=== PATIENT | female | born 1970 | race Caucasian/White ===

== ENCOUNTER 2019-08-06 13:07 | Emergency (ER) | payer BC, SELFPAY ==
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
[2019-08-06 13:32] VITALS: BP 132/58; PULSE 94; RESP 18; TEMP 37.3; O2SAT 100
[2019-08-06] MEDS: TETANUS,DIPHTHERIA,AC PERTUSSIS ADULT 0.5 ML (ADACEL) IM (14:26)
[2019-08-06] MEDS: ACETAMINOPHEN 500 MG TABLET 1000 MG PO (14:28)
== END 2019-08-06 15:10 | disposition home or self-care (01) ==
PROVIDERS: Emergency Provider Nurse Practitioner Family
DX: S22.42XA Multiple fractures of ribs, left side, initial encounter for closed fracture (principal); S40.012A Contusion of left shoulder, initial encounter; S80.211A Abrasion, right knee, initial encounter; V18.0XXA Pedal cycle driver injured in noncollision transport accident in nontraffic accident, initial encounter; Z23 Encounter for immunization
CPT/HCPCS: 71101; 73030; 73562; 90471; 90715; 99204; A4565; A9270; G0463

== ENCOUNTER → 2019-09-30 09:28 | Outpatient (CLI) | payer BC, SELFPAY ==
--- NOTE | ~2019-09-30 | US_ITS ---
US breast LT limited 09/30/2019 10:04 Indication: Follow-up left breast mass Procedure: Limited high-resolution ultrasound of the left breast Comparison: Comparison to multiple prior studies sequentially, with oldest reviewed study dated 03/2018. Findings: At 2:30, 4 cm from the nipple, there is a 4 mm cyst. At 3:00, 3 cm from the nipple, there i s an oval circumscribed hypoechoic mass with small internal cyst measuring 6 x 4 x 3 mm with parallel orientation, no posterior features and no internal vascularity, without significant change. Impression: 1: Stable benign-appearing left breast masses. BI-RADS CATEGORY 3-PROBABLY BENIGN FINDING RECOMMENDATION: Six-month follow-up diagnostic bilateral mammogram and left breast ultrasound recomme nded. Reviewed, dictated and finalized at [facility]. Impression: 1: Stable benign-appearing left breast masses. BI-RADS CATEGORY 3-PROBABLY BENIGN FINDING RECOMMENDATION: Six-month follow-up diagnostic bilateral mammogram and left florencia ast ultrasound recommended.
== END ==
DX: N63.20 Unspecified lump in the left breast, unspecified quadrant (principal); R92.8 Other abnormal and inconclusive findings on diagnostic imaging of breast
CPT/HCPCS: 76642